=== PATIENT | male | born 1945 | race Hispanic/Latino ===

== ENCOUNTER 2019-01-16 18:38 | Inpatient (IN) | payer MEDICARE ==
[~2019-01-16] VITALS: Ht 175.3 cm; Wt 73.2 kg
[~2019-01-16 18:38] MED LIST: BACTRIM DS TAB1 EACH PO; BENTYL10 MG PO; GLUCOPHAGE500 MG PO; LISINOPRIL5 MG PO; PANTOPRAZOLE SO40 MG PO; ULTRAM50 MG PO
--- NOTE | 2019-01-16 19:00 | NUR ---
NOTIFIED DR MAGANA PATIENT TACHYCARDIC AND HYPOTENSIVE, VERBAL ORDER RECEIVED 1L NS BOLUS
[2019-01-16] MEDS ORDERED: SODIUM CHLORIDE 0.9% 1000ML 1,000 ML ONE (19:04)
[2019-01-16] MEDS ORDERED: SODIUM CHLORIDE 0.9% 1000ML 1,000 ML IV ONE (19:15)
[2019-01-16 19:23] LABS: BASOPHILS % 0.4 % (0.0-1.0); EOSINOPHILS # (AUTO) 0.7 (0.0-0.4); EOSINOPHILS % 6.4 % (0.0-6.0); HEMATOCRIT 32.7 % (38.2-49.6); HEMOGLOBIN 10.8 g/dL (14.0-18.0); LYMPHOCYTES # (AUTO) 1.6 (1.0-3.2); MEAN CORPUSCULAR HEMOGLOBIN 30.4 pg (28-32); MEAN CORPUSCULAR VOLUME 92.1 fL (81-99); MONOCYTES # (AUTO) 0.8 (0.2-0.8); MONOCYTES % 7.5 % (4.4-11.3); NEUTROPHILS # (AUTO) 7.5 (2.1-6.9); NEUTROPHILS % 70.4 % (38.7-80.0); PLATELET COUNT 263 x10e3/uL (140-360); RED BLOOD COUNT 3.55 x10e6/uL (4.3-5.7); RED CELL DISTRIBUTION WIDTH 13.2 % (11.7-14.4)
[2019-01-16 19:28] LABS: INR 0.84
[2019-01-16 19:29] LABS: PARTIAL THROMBOPLASTIN TIME 30.5 seconds (23.8-35.5)
[2019-01-16 19:43] LABS: CREATINE KINASE MB 2.7 ng/mL (0-5.0)
[2019-01-16 19:58] LABS: ALANINE AMINOTRANSFERASE 12 IU/L (0-55); ALBUMIN 3.6 g/dL (3.5-5.0); ALBUMIN/GLOBULIN RATIO 1.2 (0.8-2.0); ALKALINE PHOSPHATASE 56 IU/L (40-150); ANION GAP 13.8 mmol/L (8-16); BLOOD UREA NITROGEN 27 mg/dL (7-26); BUN/CREATININE RATIO 24 (6-25); CALCIUM 9.2 mg/dL (8.4-10.2); CARBON DIOXIDE 25 mmol/L (22-29); CHLORIDE 106 mmol/L (98-107); CREATININE, SERUM 1.14 mg/dL (0.72-1.25); EST GLOMERULAR FILTRATION RATE > 60 ML/MIN (60-); GLUCOSE 146 mg/dL (74-118); POTASSIUM 3.8 mmol/L (3.5-5.1); SODIUM 141 mmol/L (136-145)
[2019-01-16] MEDS ORDERED: DEXTROSE 50% SYRINGE 50 ML IV PRN (20:45)
[2019-01-16] MEDS: SODIUM CHLORIDE 0.9% 1000ML 1,000 ML IV SCH (21:00)
--- NOTE | 2019-01-16 21:31 | NUR ---
AT BEDSIDE WITH PT AND FAMILY WHEN PT BECAME UNRESPONSIVE, DIAPHORETIC AND PULSELESS; CPR INITIATED AND CODE BLUE CALLED; PT REGAINED PULSE IN UNDER 1 MINUTE, [id number]; PT STATES HE FELT BAD WHEN TRYING TO STAND TO GO TO RESTROOM; ER MD AT BEDSIDE EVALUATING PT; REPEAT EKG, H&H, CARDIAC MARKERS AND CMP ORDERED; PT ON FULL CARDIAC MONITORS, FAMILY AT BEDSIDE; WILL CONTINUE TO MONITOR
[2019-01-16] MEDS: ONDANSETRON HCL INJ 2MG/ML 2ML 2 MG/ML VIAL IV PRN (22:00)
[2019-01-16 22:09] LABS: BASOPHILS # (AUTO) 0.1 (0.0-0.1); BASOPHILS % 0.4 % (0.0-1.0); EOSINOPHILS # (AUTO) 0.8 (0.0-0.4); EOSINOPHILS % 6.6 % (0.0-6.0); HEMATOCRIT 24.1 % (38.2-49.6); HEMOGLOBIN 7.8 g/dL (14.0-18.0); LYMPHOCYTES # (AUTO) 3.2 (1.0-3.2); LYMPHOCYTES % 25.4 % (18.0-39.1); MEAN CORPUSCULAR HEMOGLOBIN 30.5 pg (28-32); MEAN CORPUSCULAR HGB CONC 32.4 g/dL (31-35); MEAN CORPUSCULAR VOLUME 94.1 fL (81-99); NEUTROPHILS # (AUTO) 7.4 (2.1-6.9); NEUTROPHILS % 59.2 % (38.7-80.0); PLATELET COUNT 187 x10e3/uL (140-360); RED BLOOD COUNT 2.56 x10e6/uL (4.3-5.7); RED CELL DISTRIBUTION WIDTH 13.4 % (11.7-14.4)
[2019-01-16 22:28] LABS: ANION GAP 13.7 mmol/L (8-16); BLOOD UREA NITROGEN 26 mg/dL (7-26); BUN/CREATININE RATIO 29 (6-25); CALCIUM 7.9 mg/dL (8.4-10.2); CARBON DIOXIDE 21 mmol/L (22-29); CHLORIDE 111 mmol/L (98-107); CREATINE KINASE 51 IU/L (30-200); EST GLOMERULAR FILTRATION RATE > 60 ML/MIN (60-); GLUCOSE 196 mg/dL (74-118); POTASSIUM 3.7 mmol/L (3.5-5.1); SODIUM 142 mmol/L (136-145)
[2019-01-16] MEDS ORDERED: FUROSEMIDE INJ 10 MG/ML 2 ML VIAL IV PRN (22:30)
[2019-01-16] MEDS ORDERED: SODIUM CHLORIDE 0.9% 250ML 250 ML IV ONE (22:30)
[2019-01-16] MEDS: INSULIN REGULAR, HUMAN 100 UNIT/1 ML 3ML VIAL SQ SCH (22:49)
[2019-01-16 23:45] VITALS: BP_SYST 101; BP_SYST 126; BP_DIAS 56
[2019-01-17] VITALS (27 sets, daily range): BP systolic 100–154; BP diastolic 45–89
[2019-01-17] MEDS: ONDANSETRON HCL INJ 2MG/ML 2ML 2 MG/ML VIAL IV PRN (02:07)
--- NOTE | 2019-01-17 03:00 | NUR ---
Spoke with Dr. Catie Rankin while rounding, ordered to check H & H after this second bag of blood and will decide if pt needs 3rd bag or not.
[2019-01-17] MEDS: SODIUM CHLORIDE 0.9% 1000ML 1,000 ML IV SCH ×3 (05:01→22:50)
--- NOTE | 2019-01-17 07:01 | NUR ---
H&P cc: blood loss HPI:73yoM, PCP , developed blood loss per rectum after taking tylenol at work for pain. Pt had similar episodes in past. Hx GIB. No abdominal pain. PMH: cellulitis, gastritis, esophagitis, diverticulosis, GIB, DM2, GIB PSHX: none Allergies; see emr FH/SH: ; occ etoh; no cigs Meds; see MAR ROS: no f/c/s/N/V/D/MORALES/cp/sob/skin rash/vision changes v/s; revd PE nad anicteric ns1s2 mod bs soft nt nd no e/t a&xo3; jenkins skin dry n. affect lab/meds revd A/P: 73yoM GIB- IV ppi and GI consult; s/p 2 units PRBC ANemia- s/p tranfusion. DM2- lipid/hba1c HTN- aceI HLD- check lipids Hx Gastritis Prop: scd; ppi dispo:GI consult; f/u H/H; cct>35mins.
[2019-01-17] MEDS: INSULIN REGULAR, HUMAN 100 UNIT/1 ML 3ML VIAL SQ SCH ×4 (07:30→20:37)
[2019-01-17 08:39] LABS: HEMATOCRIT 29.3 % (38.2-49.6); HEMOGLOBIN 9.7 g/dL (14.0-18.0)
[2019-01-17 08:52] LABS: ALBUMIN 2.3 g/dL (3.5-5.0); ALBUMIN/GLOBULIN RATIO 0.9 (0.8-2.0); ANION GAP 14.9 mmol/L (8-16); CALCIUM 8.1 mg/dL (8.4-10.2); CREATININE, SERUM 2.04 mg/dL (0.72-1.25); POTASSIUM 4.9 mmol/L (3.5-5.1)
[2019-01-17] MEDS: LISINOPRIL 2.5 MG TAB PO SCH (09:00)
[2019-01-17] MEDS: PANTOPRAZOLE 40 MG 10ML VIAL IV SCH (09:00)
[2019-01-17 10:00] LABS: FERRITIN 96.79 ng/mL (21.81-274.66)
[2019-01-17 10:40] LABS: CHOL/HDL RATIO 2.9 (3.9-4.7)
[2019-01-17] MEDS ORDERED: PEG (High)/E-LYTE SOLN 4,000 ML BTL PO ONE (12:30)
[2019-01-17 14:43] LABS: HEMATOCRIT 26.5 % (38.2-49.6); HEMOGLOBIN 8.7 g/dL (14.0-18.0)
--- NOTE | 2019-01-17 16:47 | NUR ---
Nutrition Screen Note RD Recommendation for Physician: -Rec advancing diet to GI soft/ADA 1800 as medically appropriate Plan of Care: RD following, monitoring for tolerance and adequacy Nutrition reason for involvement: Nutrition Risk Trigger MST Primary Diagnose(s): lower GI bleed, anemia PMH: cellulitis, gastritis, esophagitis, diverticulosis, GI bleed, DM Ht: 68in Wt: 173lb BMI: 26.3kg/m2 IBW: 154lb +/- 10% RD Assessment: (01/17) Chart reviewed. Labs and meds reviewed. 73yo M, who was admitted for lower GI bleed. Visited pt in the room. Pt reported no change in PO intake [employer]. Weight has been stable. No complain of nausea or vomiting. LBM 01/17 with blood. Pt denied any chewing or swallowing difficulty. Pt was eager to eat. Colonoscopy was scheduled for tomorrow. Will continue to monitor and follow. Current Diet: clear liquid Malnutrition Evaluation (01/17) The patient does not meet criteria for a specified degree of malnutrition at this time. Will re-evaluate at follow-up as appropriate. Diet Education Needs Assessment: Diet education not indicated. Nutrition Care Level: low Signed: Joyce Gilmore, MS, RD, LD
[2019-01-17 20:33] LABS: HEMATOCRIT 27.4 % (38.2-49.6); HEMOGLOBIN 8.9 g/dL (14.0-18.0)
[2019-01-18] VITALS (25 sets, daily range): BP systolic 95–172; BP diastolic 28–85
[2019-01-18] MEDS ORDERED: CITRATE OF MAGNESIA 300ML BOTTLE PO ONE (05:00)
[2019-01-18 05:07] LABS: HEMATOCRIT 24.8 % (38.2-49.6); HEMOGLOBIN 8.2 g/dL (14.0-18.0)
--- NOTE | 2019-01-18 06:27 | NUR ---
IM- progress note O/N no events ROS: no f/c/s/N/V/D/MORALES/cp/sob/skin rash/vision changes v/s; revd PE nad anicteric ns1s2 mod bs soft nt nd no e/t a&xo3; jenkins skin dry n. affect lab/meds revd A/P: 73yoM GIB- IV ppi and GI consult; s/p 2 units PRBC ANemia- s/p tranfusion. DM2- lipid/hba1c HTN- aceI HLD- check lipids Hx Gastritis Prop: scd; ppi dispo:GI consult; f/u H/H; cct>35mins. 01/18 Hb 8.2 today; vitB12 deficiency- start replacement; check BMP for renal fn Joseph Howard MD, PhD.
[2019-01-18] MEDS: SODIUM CHLORIDE 0.9% 1000ML 1,000 ML IV SCH ×2 (06:55→12:32)
[2019-01-18 07:10] LABS: ANION GAP 11.2 mmol/L (8-16); BLOOD UREA NITROGEN 10 mg/dL (7-26); BUN/CREATININE RATIO 14 (6-25); CALCIUM 8.2 mg/dL (8.4-10.2); CARBON DIOXIDE 24 mmol/L (22-29); CHLORIDE 112 mmol/L (98-107); CREATININE, SERUM 0.72 mg/dL (0.72-1.25); EST GLOMERULAR FILTRATION RATE > 60 ML/MIN (60-); GLUCOSE 93 mg/dL (74-118); POTASSIUM 3.2 mmol/L (3.5-5.1); SODIUM 144 mmol/L (136-145)
[2019-01-18] MEDS: INSULIN REGULAR, HUMAN 100 UNIT/1 ML 3ML VIAL SQ SCH ×4 (07:30→21:00)
[2019-01-18] MEDS: LISINOPRIL 2.5 MG TAB PO SCH (09:00)
[2019-01-18] MEDS: CYANOCOBALAMIN INJ 1,000 MCG/ML VIAL IM SCH (09:00)
[2019-01-18] MEDS: PANTOPRAZOLE 40 MG 10ML VIAL IV SCH (09:00)
[2019-01-18 12:37] LABS: HEMATOCRIT 30.6 % (38.2-49.6); HEMOGLOBIN 9.7 g/dL (14.0-18.0)
[2019-01-18] MEDS ORDERED: POTASSIUM CHLORIDE 20MEQ/100ML 100 ML IV ONE (12:45)
[2019-01-18] MEDS ORDERED: PROPOFOL IV EMULSION 10 MG/ML 20 ML VIAL ONE (14:31)
[2019-01-18 18:07] LABS: HEMATOCRIT 28.3 % (38.2-49.6); HEMOGLOBIN 9.2 g/dL (14.0-18.0)
[2019-01-18] MEDS ORDERED: GLUCAGON FOR INJ 1 MG VIAL ONE (18:40)
[2019-01-18] MEDS ORDERED: ZOLPIDEM TARTRATE 5 MG TAB PO PRN (19:00)
[2019-01-18] MEDS ORDERED: SODIUM CHLORIDE 0.9% 1000ML 1,000 ML IV SCH (19:45)
[2019-01-19] VITALS (13 sets, daily range): BP systolic 107–160; BP diastolic 49–85
[2019-01-19] MEDS: INSULIN REGULAR, HUMAN 100 UNIT/1 ML 3ML VIAL SQ SCH ×2 (07:30→11:30)
--- NOTE | 2019-01-19 08:04 | NUR ---
D/C summary Principal Dx: Multiple colonic polyps Diverticulosis GIB- IV ppi and GI consult; s/p 2 units PRBC ANemia- s/p tranfusion. Secondary Dx: DM2- lipid/hba1c HTN- aceI HLD- check lipids Hx Gastritis Prop: scd; ppi dispo:GI consult; f/u H/H; cct>35mins. 01/18 Hb 8.2 today; vitB12 deficiency- start replacement; check BMP for renal fn 01/19 Hb stable; check K. d/c planning; f/u GI d/c home f/u pcp 1 week and GI 2 weeks stable d/c>35mins Joseph Howard MD, PhD.
[2019-01-19] MEDS: CYANOCOBALAMIN INJ 1,000 MCG/ML VIAL IM SCH (08:27)
[2019-01-19] MEDS: LISINOPRIL 2.5 MG TAB PO SCH (08:33)
[2019-01-19 09:16] LABS: HEMATOCRIT 25.5 % (38.2-49.6); HEMOGLOBIN 8.6 g/dL (14.0-18.0)
[2019-01-19] MEDS ORDERED: POTASSIUM CHLORIDE 20 MEQ TAB CR PO ONE (11:00)
[2019-01-19] MEDS ORDERED: VITAMIN B-121000 MCG PO (11:29)
[2019-01-19] MEDS ORDERED: PANTOPRAZOLE SO40 MG PO (11:30)
--- NOTE | 2019-01-19 12:16 | NUR ---
IMM LETTER EXPLAINED TO PT. PT VERBALIZED UNDERSTANDING. IMM LETTER SIGNED. COPY TO PT AND COPY TO CHART. PT TO DC HOME FROM ICU.
== END 2019-01-19 13:13 | disposition home or self-care (01) | DRG 393 ==
LOC: ER 18:38 → ERHOLD 20:48 → ICU 23:55 → CATH LAB V 01-19 12:02 → ICU 01-19 12:06
PROVIDERS: ADMIT Internal Medicine; ATTEND Internal Medicine
PROC: 30233N1 Transfusion of Nonautologous Red Blood Cells into Peripheral Vein, Percutaneous Approach (ICD-10-PCS; 2019-01-16)
PROC: 0DBP8ZX Excision of Rectum, Via Natural or Artificial Opening Endoscopic, Diagnostic (ICD-10-PCS; 2019-01-18)
PROC: 0DBK8ZX Excision of Ascending Colon, Via Natural or Artificial Opening Endoscopic, Diagnostic (ICD-10-PCS; principal; 2019-01-18 15:47)
PROC: 0DBL8ZX Excision of Transverse Colon, Via Natural or Artificial Opening Endoscopic, Diagnostic (ICD-10-PCS; 2019-01-18 15:47)
DX: K63.5 Polyp of colon (principal); K57.91 Diverticulosis of intestine, part unspecified, without perforation or abscess with bleeding; E11.9 Type 2 diabetes mellitus without complications; K29.70 Gastritis, unspecified, without bleeding; I10 Essential (primary) hypertension
CPT/HCPCS: 36415; 45384; 45385; 80048; 80053; 80061; 82550; 82553; 82607; 82728; 82948; 83036; 83540; 84132; 84466; 84484; 85002; 85014; 85018; 85025; 85049; 85610; 85730; 86850; 86900; 86920; 88305; 93005; 99285; J1610; J2405; J3420; J3480; J7030; J7050; P9016